=== PATIENT | female | born 1950 | race Caucasian/White ===

== ENCOUNTER 2018-01-21 11:25 | Emergency (ER) | payer OTHER ==
[~2018-01-21] VITALS: Ht 165.1 cm; Wt 81.6 kg
[2018-01-21] MEDS ORDERED: LISINOPRIL5 MG (12:25)
[2018-01-21] MEDS ORDERED: LEVOTHYROXINE25 MCG (12:25)
[2018-01-21] MEDS ORDERED: TOPROL XL25 MG (12:25)
[2018-01-21] MEDS ORDERED: PLAVIX75 MG (12:26)
[2018-01-21] MEDS ORDERED: HYDROCHLOROTH12.5 M1 (12:26)
[2018-01-21] MEDS ORDERED: TYLENOL325 MG (12:26)
[2018-01-21] MEDS ORDERED: AMLOD-VALSA-HC1 EAC2 (12:26)
== END 2018-01-21 16:15 | disposition home or self-care (01) ==
LOC: ER 11:25
DX: G89.11 Acute pain due to trauma (principal); M79.671 Pain in right foot